=== PATIENT | male | born 1990 | race African-American/Black ===

== ENCOUNTER 2019-01-18 20:38 | Emergency (ER) | payer SELFPAY ==
[~2019-01-18] VITALS: Ht 188 cm; Wt 79.0 kg
[2019-01-18] MEDS ORDERED: LACO100T PO (20:47)
--- NOTE | 2019-01-18 20:47 | NUR ---
BROUGHT IN BY UNIQUE AFTER HAVING A WITNESSED SEIZURE AT WORK TODAY. SOMEWHAT POSTICTAL ON THEIR ARRIVAL. AT THIS TIME MILD DROWSINESS AND C/O MUJICA. SEIZURE PADS IN PLACE. PT STATES HE HAS NOT HAD A SEIZURE IN A YEAR.
--- NOTE | 2019-01-18 21:06 | NUR ---
REPORT TO LARISSA TAN
[2019-01-18] MEDS ORDERED: LORazepam 2 MG/ML, 1ML ONE (21:08)
--- NOTE | 2019-01-18 21:10 | NUR ---
BEDSIDE REPORT FROM BRITNEY RUGGIERO. PT PWD; AWAKE/ALERT, RESTING IN GURNEY W/ EYES OPEN. A&OX4; SPEECH CLEAR AND APPROPRIATE. PT MEDICATED WITH 1MG PER VERBAL ORDER FROM [facility]. BP/SPO2 MONITOR IN PLACE. PT ON 2L BY NC FOR SUPPORT.
[2019-01-18] MEDS ORDERED: LORazepam 2 MG/ML, 1ML IVPush STA (21:13)
[2019-01-18 21:49] LABS: BASOPHILS # (AUTO) 0.03 x10^3/uL (0-0.1); BASOPHILS % (AUTO) 0 % (0-1); EOSINOPHILS # (AUTO) 0.08 x10^3/uL (0-0.4); EOSINOPHILS % (AUTO) 1 % (1-7); LYMPHOCYTES # (AUTO) 1.12 x10^3/uL (1-3.4); LYMPHOCYTES % (AUTO) 11 % (22-44); MD NO; MEAN CORPUSCULAR HEMOGLOBIN 32.7 pg (27.5-34.5); MEAN CORPUSCULAR HGB CONC 33.5 g/dL (33.2-36.2); MEAN CORPUSCULAR VOLUME 97.6 fL (81-97); MEAN PLATELET VOLUME 7.4 fL (7.4-10.4); MONOCYTES # (AUTO) 0.36 x10^3/uL (0.2-0.8); MONOCYTES % (AUTO) 4 % (2-9); NEUTROPHILS # (AUTO) 8.52 x10^3/uL (1.8-6.8); NEUTROPHILS % (AUTO) 84 % (42-75); PLATELET COUNT 316 x10^3/uL (130-400); RED BLOOD COUNT 4.76 x10^6/uL (4.38-5.82); RED CELL DISTRIBUTION WIDTH 14.7 % (9.4-14.8)
[2019-01-18 21:50] VITALS: BP 106/60
[2019-01-18 21:52] LABS: ALBUMIN 3.8 g/dL (3.4-5.0); ANION GAP 5 mmol/L (5-15); CHLORIDE 106 mmol/L (98-107); CREATININE 1.24 mg/dL (0.7-1.3)
--- NOTE | 2019-01-18 21:55 | NUR ---
NO SZ LIKE ACTIVITY NOTED IN ED. PT REPORTS "FEELING FINE". SPO2 >90% ON RA. DC EDUCATION PROVIDED, PT DEMONSTRATES UNDERSTANDING. PT AMBULATED STEADILY TO DC WITH RN. SO IN LOBBY TO TRANSPORT PT HOME.
== END 2019-01-18 22:30 | disposition home or self-care (01) ==
LOC: ED 22:23
DX: G40.309 Generalized idiopathic epilepsy and epileptic syndromes, not intractable, without status epilepticus (principal); F17.200 Nicotine dependence, unspecified, uncomplicated
CPT/HCPCS: 36415; 80048; 82040; 85025; 96374; 99283; J2060